=== PATIENT | male | born 1995 | race Hispanic/Latino ===

== ENCOUNTER 2018-03-29 00:54 | Emergency (ER) | payer BC ==
--- NOTE | 2018-03-29 02:26 | CT ---
EXAM: CT Chest Without Intravenous Contrast CLINICAL HISTORY: 23 years old, male; Pain; Chest pain; Additional info: Chest pain, HX of pectoralis excavatum TECHNIQUE: Axial computed tomography images of the chest without intravenous contrast. All CT scans at this facility use one or more dose reduction techniques, viz.: automated exposure control; ma/kV adjustment per patient size (including targeted exams where dose is matched to indication; i.e. head); or iterative reconstruction technique. Coronal and sagittal reformatted images were created and reviewed. COMPARISON: No relevant prior studies available. FINDINGS: Limitations: Lack of intravenous contrast. Lungs: No consolidation. Minimal apical scarring. Few pulmonary nodules, up to 0.4 cm. Pleural space: No pneumothorax. No significant effusion. Heart: No cardiomegaly. Trace focal pericardial effusion. Bones/joints: Pectus excavatum. No acute fracture. Soft tissues: Unremarkable. Vasculature: Unremarkable. No aneurysm. Lymph nodes: No pathologically enlarged lymph nodes. IMPRESSION: 1. No acute findings. 2. Pulmonary nodules. For low-risk patients, no follow-up is necessary. For high-risk patients (smoking history or other known risk factors) an optional CT at 12 months could be performed. 3. Incidental/non-acute findings are described above.
--- NOTE | 2018-03-29 02:30 | ED PDOC ---
HPI: Chest Pain Time Seen by Provider: 03/29/18 01:44 Chief Complaint (Nursing): Chest Pain Chief Complaint (Provider): Central chest discomfort, SOB History Per: Patient History/Exam Limitations: no limitations Onset/Duration Of Symptoms: Hrs Current Symptoms Are (Timing): Intermittent Episodes Additional Complaint(s): 23 yo male with history of pectoralis excavatum presents with central chest discomfort and intermittnet SOB. Pt states she chest discomfort began 5 days ago when he was moving heavy bags over hill while camping. Pt repots discomfort in chest and back at that time. Pt states he now feels like the concave section in his chest may be deeper then previous. Pt states he can't tell if he is "freaking himself out or not". Pt states he looks at the area and gets worried, than feels SOB which resolves. PT denies URI, fever/chills. Past Medical History Reviewed: Historical Data, Nursing Documentation, Vital Signs Vital Signs: Last Vital Signs Temp 97.5 F L 03/29/18 01:11 Pulse 56 L 03/29/18 01:43 Resp 18 03/29/18 01:11 BP 126/72 03/29/18 01:11 Pulse Ox 96 03/29/18 02:31 - Medical History PMH: No Chronic Diseases - Surgical History Surgical History: No Surg Hx - Family History Family History: States: No Known Family Hx - Living Arrangements Living Arrangements: With Family - Allergies Allergies/Adverse Reactions: Allergies Allergy/AdvReac Type Severity Reaction Status Date / Time lactose AdvReac DIARRHEA Verified 03/29/18 01:11 Review of Systems ROS Statement: Except As Marked, All Systems Reviewed And Found Negative Constitutional: Negative for: Fever, Chills Cardiovascular: Positive for: Chest Pain Respiratory: Positive for: Shortness of Breath Physical Exam - Reviewed Nursing Documentation Reviewed: Yes Vital Signs Reviewed: Yes - Physical Exam Appears: Positive for: Well, Non-toxic, No Acute Distress Head Exam: Positive for: ATRAUMATIC, NORMAL INSPECTION, NORMOCEPHALIC Skin: Positive for: Normal Color, Warm, DRY Eye Exam: Positive for: Normal appearance ENT: Positive for: Normal ENT Inspection Neck: Positive for: Normal, Painless ROM Cardiovascular/Chest: Positive for: Regular Rate, Rhythm, Other (pectoralis excavatum - Non-tender ) Respiratory: Positive for: Normal Breath Sounds. Negative for: Accessory Muscle Use, Respiratory Distress Back: Positive for: Normal Inspection Extremity: Positive for: Normal ROM Neurologic/Psych: Positive for: Alert, Oriented - ECG O2 Sat by Pulse Oximetry: 96 Pulse Ox Interpretation: Normal Disposition - Clinical Impression Clinical Impression: Chest wall discomfort - Disposition Disposition: Routine/Home Disposition Time: 03:36 Condition: STABLE Instructions: Chest Pain That Is Not Caused by the Heart (DC) Forms: [employer] ([place])
[2018-03-29 03:35] VITALS: RESP 17
[2018-03-29 04:14] VITALS: BP 121/76; PULSE 76; TEMP 98.1; O2SAT 100
--- NOTE | 2018-03-30 08:46 | CARD ---
APPROVED REPORT EKG Measurement Heart [id number] <Conclusion> Sinus bradycardia Possible Left atrial enlargement Right bundle branch block Abnormal ECG
== END 2018-03-29 04:06 | disposition home or self-care (01) ==
LOC: H.ER 00:54
DX: R07.89 Other chest pain (principal)